=== PATIENT | female | born 1970 | race African-American/Black ===

== ENCOUNTER 2021-05-04 00:05 | Emergency (ER) | payer OTHER, SELFPAY ==
[2021-05-04 01:37] LABS: ALT (SGPT) 19 U/L (8-55); AST (SGOT) 12 U/L (5-34); Albumin 3.9 g/dL (3.5-5.0); Alkaline Phosphatase 124 U/L (40-110); Anion Gap 13 mmol/L (10-20); BUN (Urea Nitrogen) 14 mg/dL (7.0-18.7); Bilirubin, Total 0.4 mg/dL (0.2-1.2); Calc. Creatinine Clearance 0 mL/min (70-130); Calcium 9.5 mg/dL (7.8-10.44); Carbon Dioxide 23 mmol/L (22-29); Chloride 103 mmol/L (98-107); Globulin 3.7 g/dL (2.4-3.5); Glucose 206 mg/dL (70-105); Potassium 4.4 mmol/L (3.5-5.1); Protein, Total 7.6 g/dL (6.0-8.3); Sodium 135 mmol/L (136-145)
[2021-05-04 01:41] LABS: #Basophils 0.1 10x3/uL (0.0-0.2); #Eosinphils 0.1 10x3/uL (0.0-0.5); #Monocytes 0.8 10x3/uL (0.0-1.1); #Neutrophils 6.1 10x3/uL (1.5-8.4); %Basophils 0.9 % (0.0-2.0); %Eosinophils 1.2 % (0.0-6.0); %Lymphocytes 18.2 % (18.0-47.0); %Neutrophils 70.6 % (40.0-75.0); Hemoglobin 12.7 g/dL (12.0-15.5); Mean Corpuscular HGB CONC 31.9 g/dL (32.0-36.0); Mean Corpuscular Hemoglobin 26.7 pg (27.0-33.0); Mean Corpuscular Volume 83.6 fl (81.6-98.3); Mean Platelet Volume 10.5 fl (7.4-10.4); Platelet Count 332 10x3/uL (150-450); Red Blood Cell (RBC) Count 4.76 10x6/uL (3.90-5.03); White Blood Cell (WBC) Count 8.7 10x3/uL (3.5-10.5)
[2021-05-04 01:45] LABS: Bilirubin Neg (Negative); Blood, Urine 250 (Negative); Clarity Bloody (Clear); Glucose, Urine (Dipstick) Normal (Negative); Ketone, Urine 5 mg/dL (Negative); Nitrite Negative (Negative); Protein, Urine (Dipstick) 500 mg/dl (Neg-Trace); Specific Gravity, Urine 1.025 (1.002-1.036); Urobilinogen Normal mg/dL (Less than 2); pH, Urine 6.5 (5.0-9.0)
[2021-05-04 01:47] LABS: Leukocyte Unable to Interpret (Negative); RBC/HPF Greater than 50 HPF (0-3)
[2021-05-04 01:48] LABS: WBC/HPF 21-50 HPF (0-3)
[2021-05-04 01:49] LABS: Bacteria/HPF 3+ HPF (None Seen); Transitional Epithelial 0-3 HPF (None Seen)
[2021-05-04 01:50] LABS: Mucous/LPF 1+ LPF (<2+)
[2021-05-04] MEDS ORDERED: cefTRIAXone\\ROCEPHIN 2 GM VIAL ONE (02:24)
== END 2021-05-04 02:48 | disposition home or self-care (01) ==
LOC: CSHERS 00:05
DX: N30.01 Acute cystitis with hematuria (principal); I10 Essential (primary) hypertension
CPT/HCPCS: 80053; 81003; 81015; 85025; 87077; 87086; 87186; 96374; J0696